=== PATIENT | female | born 1985 | race Caucasian/White ===

== ENCOUNTER 2018-08-03 21:15 | Emergency (ER) | payer SELFPAY ==
[2018-08-03] MEDS ORDERED: HYDROcodone/Acetaminophen 10/325 mg Tablet ONE (21:39)
--- NOTE | 2018-08-03 21:44 | RAD ---
RIGHT FOOT THREE VIEW 08/03/18 HISTORY: Trauma. COMPARISON: None. FINDINGS: No acute displaced fracture or malalignment. Bipartite medial hallux sesamoid. Mild lateral soft tiss ue swelling. IMPRESSION: No acute fracture or malalignment. POS: [facility]
--- NOTE | 2018-08-03 22:05 | RAD ---
RIGHT ANKLE THREE VIEW 07/24/18 HISTORY: Trauma. COMPARISON: None. FINDINGS: No fracture or malalignment. Ankle mortise is congruent. IMPRESSION: No acute abnormality. POS: [facility]
== END 2018-08-03 22:38 | disposition home or self-care (01) ==
LOC: ERS 21:15
DX: S93.601A Unspecified sprain of right foot, initial encounter (principal); F17.210 Nicotine dependence, cigarettes, uncomplicated; W19.XXXA Unspecified fall, initial encounter

== ENCOUNTER 2018-12-19 13:44 | Emergency (ER) | payer SELFPAY ==
[2018-12-19 14:27] LABS: #Lymphocytes 2.1 thou/uL (1.20-3.40); #Monocytes 0.4 thou/uL (0.11-0.59); #Neutrophils 7.2 thou/uL (1.40-6.50); %Basophils 0.4 % (0.0-1.0); %Eosinophils 0.1 % (0.0-10.0); %Lymphocytes 21.6 % (21.0-51.0); %Monocytes 3.9 % (0.0-10.0); %Neutrophils 73.9 % (42.0-75.0); Hemoglobin 16.3 g/dL (12.0-16.0); Mean Corpuscular HGB CONC 33.3 g/dL (32.0-36.0); Mean Corpuscular Hemoglobin 33.1 pg (27.0-31.0); Mean Corpuscular Volume 99.4 fL (78.0-98.0); Mean Platelet Volume 7.7 fL (7.4-10.4); Platelet Count 254 thou/uL (130-400); RBC Distribution Width 12.4 % (11.5-14.5); Red Blood Cell (RBC) Count 4.92 mill/uL (4.20-5.40); White Blood Cell (WBC) Count 9.8 thou/uL (4.8-10.8)
[2018-12-19 14:36] LABS: Bilirubin Moderate (Negative); Blood, Urine Moderate (Negative); Clarity CLEAR (Clear); Glucose, Urine (Dipstick) Negative (Negative); Leukocyte Negative (Negative); Nitrite Negative (Negative); Protein, Urine (Dipstick) 100 mg/dL (Neg-Trace); Urobilinogen 0.2 mg/dL (0.2-1.0); pH, Urine 5.5 (5.0-9.0)
[2018-12-19 14:37] LABS: Bacteria/HPF Rare-Few HPF (None Seen); Hyaline Casts/LPF NONE SEEN LPF (0-3 Hyaline); RBC/HPF 0-3 HPF (0-3); Squamous Epithelial 0-3 HPF (0-3); WBC/HPF None Seen HPF (0-3)
[2018-12-19 14:51] LABS: ALT (SGPT) 69 U/L (8-55); AST (SGOT) 40 U/L (5-34); Albumin 4.9 g/dL (3.5-5.0); Alkaline Phosphatase 95 U/L (40-150); Anion Gap 18 mmol/L (10-20); BUN (Urea Nitrogen) 13 mg/dL (7.0-18.7); Bilirubin, Total 0.6 mg/dL (0.2-1.2); Calc. Creatinine Clearance 0 mL/min (70-130); Calcium 9.9 mg/dL (7.8-10.44); Carbon Dioxide 17 mmol/L (22-29); Chloride 105 mmol/L (98-107); Estimated GFR-MDRD Greater than 90; Glucose 75 mg/dL (70-105); Lipase 21 U/L (8-78); Potassium 3.9 mmol/L (3.5-5.1); Protein, Total 7.9 g/dL (6.0-8.3); Sodium 136 mmol/L (136-145)
[2018-12-19] MEDS ORDERED: Ondansetron PF 4 MG/2 ML Vial ONE (17:12)
[2018-12-19] MEDS ORDERED: Ketorolac Tromethamine 30 MG/ML VIAL ONE (18:02)
== END 2018-12-19 18:45 | disposition home or self-care (01) ==
LOC: ERS 13:44
DX: E86.0 Dehydration (principal); F17.210 Nicotine dependence, cigarettes, uncomplicated
CPT/HCPCS: 36415; 80053; 81003; 81015; 83690; 85025; 96361; 96374; 96375; J1885; J2405